=== PATIENT | female | born 1975 | race Caucasian/White ===

== ENCOUNTER 2017-03-21 11:49 | Emergency (ER) | payer SELFPAY ==
[~2017-03-21] VITALS: Ht 167.6 cm; Wt 90.9 kg
[~2017-03-21 11:49] MED LIST: AMOXICILLIN 8751 TAB PO; ATIVAN 1MG T1 MG/TAB PO; CEPHALEXIN500 M1 PO; CIPRO 500MG TA500 MG PO; DEPO-PROVER150 MG/M1 IM; LORTAB 7.5/5001 TAB PO; NO HOME MEDICATIONS; NORCO 325 MG-51 TAB PO; NORCO 325 MG-7.1 TAB PO; PEN-VEE K500 MG PO; PHENERGAN 25 TA25 MG PO; PHENERGAN W/CO120 M1 PO; PREVPAC PO; SEPTRA DS 8001 TAB PO; TYLENOL W/COD1 UDTAB PO; ULTRAM 50MG TAB50 MG PO; ZOFRAN 4MG T4 MG/TAB PO; ZOFRAN ODT4 MG PO
[2017-03-21 12:09] VITALS: TEMP 98
[2017-03-21 12:53] LABS: BASO # 0.1 (0.0-0.2); BASO % 0.5 % (0.0-2.0); EOS # 0.2 (0.0-0.7); GRAN # 5.6 (1.4-6.5); GRAN % 58.2 % (42.2-75.2); HEMATOCRIT 41.2 % (37.0-47.0); LYMPH # 2.9 (1.2-3.4); LYMPH % 30.1 % (20.0-51.0); MEAN CELL VOLUME 95 fl (80.0-100.0); MEAN CORPUSCULAR HEMOGLOBIN 32 pg (27.0-31.0); MEAN CORPUSCULAR HGB CONC 34 g/dl (33.0-37.0); MONO # 0.9 (0.1-0.6); PLATELET COUNT 219 K/mm3 (130-400); RED BLOOD COUNT 4.32 M/mm3 (4.10-5.30); WHITE BLOOD COUNT 9.6 K/mm3 (4.8-10.8)
[2017-03-21 12:57] LABS: ALBUMIN 4.8 gm/dL (3.5-5.0); BILIRUBIN,TOTAL 0.9 mg/dL (0.0-1.0); CALCIUM 9.6 mg/dL (8.4-10.2); CREATININE, serum 0.84 mg/dL (0.52-1.25); TOTAL PROTEIN 8.3 gm/dL (6.4-8.2)
[2017-03-21 13:46] LABS: COLLECTION METHOD CLEAN CATCH
[2017-03-21 13:55] LABS: MUCOUS Present /lpf; PH 5 (5-8); SQUAMOUS EPITHELIAL None Seen /hpf; URINE APPEARANCE Clear; URINE BACTERIA None Seen /hpf; URINE BILIRUBIN Negative (NEGATIVE); URINE BLOOD 2+ (NEGATIVE); URINE COLOR Yellow; URINE GLUCOSE Negative (NEGATIVE); URINE KETONE Negative (NEGATIVE); URINE LEUKOCYTE ESTERASE Negative (NEGATIVE); URINE PROTEIN(semi-quant) Negative (NEGATIVE); URINE RBC 0-2 /hpf; URINE UROBILINOGEN Negative (NEGATIVE); URINE WBC 0-2 /hpf
[2017-03-21 15:15] VITALS: BP 118/74; PULSE 82
== END 2017-03-21 15:25 | disposition home or self-care (01) ==
LOC: COL.ER 11:49
PROVIDERS: Emergency Medicine
DX: R10.12 Left upper quadrant pain (principal); Z90.710 Acquired absence of both cervix and uterus; Z98.51 Tubal ligation status; Z87.19 Personal history of other diseases of the digestive system
CPT/HCPCS: J2270; J2405

== ENCOUNTER 2017-06-25 18:33 | Emergency (ER) | payer SELFPAY ==
[~2017-06-25] VITALS: Ht 167.6 cm; Wt 100.0 kg
[2017-06-25 18:35] VITALS: BP 135/83; PULSE 83; TEMP 99
[2017-06-25] MEDS ORDERED: VOLTAREN 75 DR75 MG PO (19:40)
[2017-06-25] MEDS ORDERED: FLEXERIL 1010 MG/TAB PO (19:40)
== END 2017-06-25 20:02 | disposition home or self-care (01) ==
LOC: COL.ER 18:33
DX: S16.1XXA Strain of muscle, fascia and tendon at neck level, initial encounter (principal); F17.210 Nicotine dependence, cigarettes, uncomplicated; R40.2412 Glasgow coma scale score 13-15, at arrival to emergency department; V49.40XA Driver injured in collision with unspecified motor vehicles in traffic accident, initial encounter

== ENCOUNTER 2017-07-09 17:04 | Emergency (ER) | payer OTHER ==
[~2017-07-09] VITALS: Ht 165.1 cm; Wt 104.5 kg
[~2017-07-09 17:04] MED LIST changes: +FLEXERIL 1010 MG/TAB PO; +VOLTAREN 75 DR75 MG PO
[2017-07-09 17:07] VITALS: BP 143/87; PULSE 71; TEMP 97.6
[2017-07-09] MEDS ORDERED: CEPHALEXIN500 M1 PO (18:01)
[2017-07-09] MEDS ORDERED: NORCO 325 MG-51 TAB PO (18:42)
== END 2017-07-09 19:01 | disposition home or self-care (01) ==
LOC: COL.ER 17:04
DX: S61.310A Laceration without foreign body of right index finger with damage to nail, initial encounter (principal); W23.0XXA Caught, crushed, jammed, or pinched between moving objects, initial encounter

== ENCOUNTER 2018-06-27 18:43 | Emergency (ER) | payer OTHER ==
[~2018-06-27] VITALS: Ht 165.1 cm; Wt 100.0 kg
[2018-06-27 18:51] VITALS: TEMP 98.7
[2018-06-27 19:03] LABS: COLLECTION METHOD CLEAN CATCH
[2018-06-27 19:16] LABS: MUCOUS Present /lpf; PH 5 (5-8); SQUAMOUS EPITHELIAL 0-2 /hpf; URINE APPEARANCE Clear; URINE BACTERIA None Seen /hpf; URINE BILIRUBIN Negative (NEGATIVE); URINE BLOOD 1+ (NEGATIVE); URINE COLOR Yellow; URINE GLUCOSE Negative (NEGATIVE); URINE KETONE Negative (NEGATIVE); URINE LEUKOCYTE ESTERASE Negative (NEGATIVE); URINE NITRATE Negative (NEGATIVE); URINE PROTEIN(semi-quant) Negative (NEGATIVE); URINE UROBILINOGEN >=4.0 mg/dL (NEGATIVE)
[2018-06-27 19:38] LABS: BASO % 0.4 % (0.0-2.0); EOS # 0.1 (0.0-0.7); EOS % 0.9 % (0-4.0); GRAN # 6.4 (1.4-6.5); GRAN % 64.4 % (42.2-75.2); HEMATOCRIT 40.2 % (37.0-47.0); HEMOGLOBIN 13.4 g/dl (12.5-16.0); LYMPH # 2.6 (1.2-3.4); LYMPH % 25.7 % (20.0-51.0); MEAN CELL VOLUME 94 fl (80.0-100.0); MEAN CORPUSCULAR HEMOGLOBIN 31 pg (27.0-31.0); MEAN CORPUSCULAR HGB CONC 33 g/dl (33.0-37.0); MEAN PLATELET VOLUME 11.3 fl (7.4-10.4); MONO # 0.8 (0.1-0.6); MONO % 8.2 % (1.7-9.3); PLATELET COUNT 206 K/mm3 (130-400); REDCELL DISTRIBUTION WIDTH-CV 13.3 % (11.5-14.5)
[2018-06-27 19:53] LABS: ALBUMIN 4.2 gm/dL (3.5-5.0); BILIRUBIN,TOTAL 0.9 mg/dL (0.0-1.0); C-REACTIVE PROTEIN 2.1 mg/dL (0.0-0.9); CALCIUM 9.4 mg/dL (8.4-10.2); CREATININE, serum 0.83 mg/dL (0.52-1.25); POTASSIUM 3.4 mmol/L (3.4-5.0); TOTAL PROTEIN 7.6 gm/dL (6.4-8.2)
[2018-06-27] MEDS ORDERED: FLAGYL500 MG PO (21:27)
[2018-06-27 21:58] VITALS: BP 121/87; PULSE 64
== END 2018-06-27 22:00 | disposition home or self-care (01) ==
LOC: COL.ER 18:43
PROVIDERS: Physician Assistant
DX: N76.0 Acute vaginitis (principal); B96.89 Other specified bacterial agents as the cause of diseases classified elsewhere; F32.9 Major depressive disorder, single episode, unspecified; Z90.710 Acquired absence of both cervix and uterus; F17.210 Nicotine dependence, cigarettes, uncomplicated; F12.90 Cannabis use, unspecified, uncomplicated; Z98.51 Tubal ligation status
CPT/HCPCS: J1885; J2270; J7030; Q9967

== ENCOUNTER 2018-10-21 23:45 | Emergency (ER) | payer SELFPAY ==
[~2018-10-21] VITALS: Ht 165.1 cm; Wt 97.7 kg
[~2018-10-21 23:45] MED LIST changes: +FLAGYL500 MG PO
[2018-10-21 23:47] VITALS: TEMP 98.7
[2018-10-22 00:15] LABS: PH 6 (5-8); SQUAMOUS EPITHELIAL 0-2 /hpf; URINE APPEARANCE Clear; URINE BACTERIA None Seen /hpf; URINE BILIRUBIN Negative (NEGATIVE); URINE BLOOD 1+ (NEGATIVE); URINE COLOR Colorless; URINE GLUCOSE Negative (NEGATIVE); URINE KETONE Negative (NEGATIVE); URINE LEUKOCYTE ESTERASE Negative (NEGATIVE); URINE NITRATE Negative (NEGATIVE); URINE PROTEIN(semi-quant) Negative (NEGATIVE); URINE RBC 0-2 /hpf; URINE UROBILINOGEN Negative (NEGATIVE); URINE WBC None Seen /hpf
[2018-10-22 00:20] LABS: BASO % 0.4 % (0.0-2.0); EOS # 0.2 (0.0-0.7); EOS % 1.7 % (0-4.0); GRAN % 55.5 % (42.2-75.2); HEMATOCRIT 40.1 % (37.0-47.0); HEMOGLOBIN 13.3 g/dl (12.5-16.0); MEAN CELL VOLUME 93 fl (80.0-100.0); MEAN CORPUSCULAR HEMOGLOBIN 31 pg (27.0-31.0); MEAN CORPUSCULAR HGB CONC 33 g/dl (33.0-37.0); MEAN PLATELET VOLUME 11.7 fl (7.4-10.4); MONO # 0.8 (0.1-0.6); PLATELET COUNT 203 K/mm3 (130-400); RED BLOOD COUNT 4.31 M/mm3 (4.10-5.30); REDCELL DISTRIBUTION WIDTH-CV 13.5 % (11.5-14.5)
[2018-10-22 00:23] LABS: INR 0.9 (0.8-3.0); PROTHROMBIN TIME 10.3 SECONDS (9.7-12.8)
[2018-10-22 00:34] LABS: COLLECTION METHOD CLEAN CATCH
[2018-10-22 00:37] LABS: ALBUMIN 4.3 gm/dL (3.5-5.0); BILIRUBIN,TOTAL 0.4 mg/dL (0.0-1.0); CALCIUM 9.6 mg/dL (8.4-10.2); CREATININE, serum 0.84 (0.52-1.25); POTASSIUM 3.3 mmol/L (3.4-5.0); TOTAL PROTEIN 7.6 gm/dL (6.4-8.2)
[2018-10-22] MEDS ORDERED: FLEXERIL 1010 MG/TAB PO (02:19)
[2018-10-22 02:37] VITALS: BP 111/78; PULSE 74
== END 2018-10-22 02:37 | disposition home or self-care (01) ==
LOC: COL.ER 23:45
PROVIDERS: Emergency Medicine
DX: S23.3XXA Sprain of ligaments of thoracic spine, initial encounter (principal); S33.9XXA Sprain of unspecified parts of lumbar spine and pelvis, initial encounter; W17.89XA Other fall from one level to another, initial encounter
CPT/HCPCS: J2405; J3010; J7030; Q9967

== ENCOUNTER 2019-03-02 11:46 | Emergency (ER) | payer SELFPAY ==
[~2019-03-02] VITALS: Ht 165.1 cm; Wt 95.5 kg
[2019-03-02 12:04] VITALS: BP 117/60; TEMP 97.6
[2019-03-02 12:46] LABS: BASO % 0.5 % (0.0-2.0); EOS # 0.1 (0.0-0.7); EOS % 1.2 % (0-4.0); GRAN # 6.3 (1.4-6.5); GRAN % 74.2 % (42.2-75.2); HEMATOCRIT 41.9 % (37.0-47.0); HEMOGLOBIN 13.5 g/dl (12.5-16.0); LYMPH # 1.6 (1.2-3.4); LYMPH % 18.4 % (20.0-51.0); MEAN CELL VOLUME 97 fl (80.0-100.0); MEAN CORPUSCULAR HEMOGLOBIN 31 pg (27.0-31.0); MEAN CORPUSCULAR HGB CONC 32 g/dl (33.0-37.0); MEAN PLATELET VOLUME 11.5 fl (7.4-10.4); MONO # 0.4 (0.1-0.6); MONO % 5.2 % (1.7-9.3); PLATELET COUNT 174 K/mm3 (130-400); RED BLOOD COUNT 4.32 M/mm3 (4.10-5.30); REDCELL DISTRIBUTION WIDTH-CV 13.2 % (11.5-14.5)
[2019-03-02 12:56] LABS: ALBUMIN 4.1 gm/dL (3.5-5.0); BILIRUBIN,TOTAL 0.2 mg/dL (0.0-1.0); C-REACTIVE PROTEIN 0.9 mg/dL (0.0-0.9); CALCIUM 9.5 mg/dL (8.4-10.2); CREATININE, serum 0.8 (0.52-1.25); POTASSIUM 3.4 mmol/L (3.4-5.0)
[2019-03-02 13:28] VITALS: PULSE 70
== END 2019-03-02 13:37 | disposition home or self-care (01) ==
LOC: COL.ER 11:46
PROVIDERS: Physician Assistant
DX: R10.13 Epigastric pain (principal); F32.9 Major depressive disorder, single episode, unspecified; F17.210 Nicotine dependence, cigarettes, uncomplicated; Z98.51 Tubal ligation status; Z90.710 Acquired absence of both cervix and uterus; Z87.19 Personal history of other diseases of the digestive system

== ENCOUNTER 2019-08-01 09:01 | Emergency (ER) | payer OTHER ==
[~2019-08-01] VITALS: Ht 165.1 cm; Wt 95.5 kg
[2019-08-01 10:12] VITALS: BP 130/80; PULSE 88; TEMP 99
== END 2019-08-01 10:13 | disposition home or self-care (01) ==
LOC: COL.ER 09:01
DX: J11.1 Influenza due to unidentified influenza virus with other respiratory manifestations (principal)

== ENCOUNTER 2019-12-09 14:44 | Emergency (ER) | payer OTHER ==
[~2019-12-09] VITALS: Ht 165.1 cm; Wt 100.0 kg
[2019-12-09 14:58] VITALS: TEMP 98.3
[2019-12-09 15:11] LABS: BASO % 0.4 % (0.0-2.0); EOS # 0.1 (0.0-0.7); EOS % 0.9 % (0-4.0); GRAN # 5.8 (1.4-6.5); GRAN % 59.5 % (42.2-75.2); HEMOGLOBIN 13.6 g/dl (12.5-16.0); LYMPH % 30.8 % (20.0-51.0); MEAN CELL VOLUME 95 fl (80.0-100.0); MEAN CORPUSCULAR HEMOGLOBIN 32 pg (27.0-31.0); MEAN CORPUSCULAR HGB CONC 33 g/dl (33.0-37.0); MEAN PLATELET VOLUME 11.8 fl (7.4-10.4); MONO # 0.8 (0.1-0.6); MONO % 8.1 % (1.7-9.3); PLATELET COUNT 190 K/mm3 (130-400); REDCELL DISTRIBUTION WIDTH-CV 13.2 % (11.5-14.5)
[2019-12-09 15:30] LABS: ALBUMIN 4.3 gm/dL (3.5-5.0); BILIRUBIN,TOTAL 0.7 mg/dL (0.0-1.0); C-REACTIVE PROTEIN 1.2 mg/dL (0.0-0.9); CALCIUM 9.5 mg/dL (8.4-10.2); CREATININE, serum 0.87 (0.52-1.25); POTASSIUM 3.6 mmol/L (3.4-5.0); TOTAL PROTEIN 7.6 gm/dL (6.4-8.2)
[2019-12-09 15:43] LABS: PROLACTIN 9.5 ng/mL (3.0-18.6)
[2019-12-09 17:03] VITALS: BP 132/92; PULSE 67
== END 2019-12-09 17:07 | disposition home or self-care (01) ==
LOC: COL.ER 14:44
PROVIDERS: Emergency Medicine
DX: F44.5 Conversion disorder with seizures or convulsions (principal); Z32.02 Encounter for pregnancy test, result negative
CPT/HCPCS: J2060; J7030

== ENCOUNTER 2020-07-14 07:21 | Emergency (ER) | payer OTHER ==
[~2020-07-14] VITALS: Ht 165.1 cm; Wt 100.0 kg
[2020-07-14 07:27] VITALS: TEMP 96.6
[2020-07-14 08:15] LABS: BASO % 0.5 % (0.0-2.0); EOS # 0.1 (0.0-0.7); EOS % 1.7 % (0-4.0); GRAN # 5.6 (1.4-6.5); GRAN % 65.9 % (42.2-75.2); HEMATOCRIT 41.1 % (37.0-47.0); HEMOGLOBIN 13.7 g/dl (12.5-16.0); LYMPH # 1.9 (1.2-3.4); LYMPH % 22.8 % (20.0-51.0); MEAN CELL VOLUME 94 fl (80.0-100.0); MEAN CORPUSCULAR HEMOGLOBIN 31 pg (27.0-31.0); MEAN CORPUSCULAR HGB CONC 33 g/dl (33.0-37.0); MEAN PLATELET VOLUME 11.3 fl (7.4-10.4); MONO # 0.7 (0.1-0.6); MONO % 8.7 % (1.7-9.3); PLATELET COUNT 215 K/mm3 (130-400); RED BLOOD COUNT 4.39 M/mm3 (4.10-5.30)
[2020-07-14 08:30] LABS: ALANINE AMINOTRANSFERASE 36 U/L (4-34); ALBUMIN 4.4 gm/dL (3.5-5.0); ALKALINE PHOSPHATASE 65 U/L (50-136); ANION GAP 8 mmol/L (7-16); AST,SGOT 30 U/L (15-37); BILIRUBIN,TOTAL 0.5 mg/dL (0.0-1.0); BLOOD UREA NITROGEN 16 mg/dL (7-17); CALCIUM 9.4 mg/dL (8.4-10.2); CARBON DIOXIDE 21 mmol/L (22-30); CHLORIDE 110 mmol/L (98-107); CREATININE, serum 1.05 (0.52-1.25); GLUCOSE 113 mg/dL (74-106); LIPASE 156 U/L (23-300); POTASSIUM 4.3 mmol/L (3.4-5.0); SODIUM 139 mmol/L (137-145); TOTAL PROTEIN 7.6 gm/dL (6.4-8.2)
[2020-07-14 08:46] LABS: TROPONIN-I < 0.012 ng/mL (0.000-0.035)
[2020-07-14] MEDS ORDERED: TYLENOL 325MG325 MG PO (10:01)
[2020-07-14] MEDS ORDERED: ROXICODONE 55 MG/TAB PO (10:01)
[2020-07-14] MEDS ORDERED: MOTRIN 400400 MG/TAB PO (10:01)
[2020-07-14] MEDS ORDERED: ZOFRAN ODT4 MG PO (10:01)
[2020-07-14 10:11] VITALS: BP 121/85; PULSE 65
== END 2020-07-14 10:16 | disposition home or self-care (01) ==
LOC: COL.ER 07:21
PROVIDERS: Emergency Medicine
DX: K80.50 Calculus of bile duct without cholangitis or cholecystitis without obstruction (principal)
CPT/HCPCS: J2270; J2405; J7030

== ENCOUNTER 2020-07-28 02:44 | Emergency (ER) | payer OTHER ==
[~2020-07-28] VITALS: Ht 165.1 cm; Wt 101.4 kg
[~2020-07-28 02:44] MED LIST changes: +MOTRIN 400400 MG/TAB PO; +ROXICODONE 55 MG/TAB PO; +TYLENOL 325MG325 MG PO
[2020-07-28 02:45] VITALS: TEMP 97.6
[2020-07-28 03:01] LABS: BASO # 0.1 (0.0-0.2); BASO % 0.6 % (0.0-2.0); EOS # 0.1 (0.0-0.7); EOS % 0.9 % (0-4.0); GRAN # 4.6 (1.4-6.5); GRAN % 52.2 % (42.2-75.2); HEMATOCRIT 42.8 % (37.0-47.0); HEMOGLOBIN 14.1 g/dl (12.5-16.0); LYMPH # 3.2 (1.2-3.4); LYMPH % 36.5 % (20.0-51.0); MEAN CELL VOLUME 96 fl (80.0-100.0); MEAN CORPUSCULAR HEMOGLOBIN 32 pg (27.0-31.0); MEAN CORPUSCULAR HGB CONC 33 g/dl (33.0-37.0); MEAN PLATELET VOLUME 11.6 fl (7.4-10.4); MONO # 0.8 (0.1-0.6); MONO % 9.2 % (1.7-9.3); PLATELET COUNT 221 K/mm3 (130-400); RED BLOOD COUNT 4.47 M/mm3 (4.10-5.30); REDCELL DISTRIBUTION WIDTH-CV 13.3 % (11.5-14.5)
[2020-07-28 03:08] LABS: ALANINE AMINOTRANSFERASE 51 U/L (4-34); ALBUMIN 4.7 gm/dL (3.5-5.0); ALCOHOL(ethanol),MEDICAL 130 mg/dL; ALKALINE PHOSPHATASE 70 U/L (50-136); ANION GAP 12 mmol/L (7-16); AST,SGOT 36 U/L (15-37); BILIRUBIN,TOTAL 0.5 mg/dL (0.0-1.0); BLOOD UREA NITROGEN 9 mg/dL (7-17); CALCIUM 9.5 mg/dL (8.4-10.2); CARBON DIOXIDE 19 mmol/L (22-30); CHLORIDE 110 mmol/L (98-107); CREATININE, serum 0.82 (0.52-1.25); GLUCOSE 101 mg/dL (74-106); LIPASE 74 U/L (23-300); POTASSIUM 3.8 mmol/L (3.4-5.0); SODIUM 142 mmol/L (137-145)
[2020-07-28 03:09] LABS: ACETAMINOPHEN < 10 ug/mL (10-30); SALICYLATE < 1.0 mg/dL
[2020-07-28 07:23] LABS: COLLECTION METHOD RANDOM VOIDED
[2020-07-28 07:41] LABS: MUCOUS Present /lpf; PH 5 (5-8); SQUAMOUS EPITHELIAL 0-2 /hpf; URINE APPEARANCE Clear; URINE BACTERIA None Seen /hpf; URINE BILIRUBIN Negative (NEGATIVE); URINE BLOOD 2+ (NEGATIVE); URINE COLOR Yellow; URINE GLUCOSE Negative (NEGATIVE); URINE KETONE 1+ (NEGATIVE); URINE LEUKOCYTE ESTERASE Negative (NEGATIVE); URINE NITRATE Negative (NEGATIVE); URINE PROTEIN(semi-quant) Negative (NEGATIVE); URINE RBC 0-2 /hpf; URINE UROBILINOGEN Negative (NEGATIVE); URINE WBC 0-2 /hpf
[2020-07-28 07:51] LABS: TRICYCLIC ANTIDEPRESS URINE NEGATIVE
[2020-07-28 20:41] VITALS: BP 132/77; PULSE 66
== END 2020-07-28 20:41 | disposition home or self-care (01) ==
LOC: COL.ER 02:44
PROVIDERS: Emergency Medicine
DX: T43.212A Poisoning by selective serotonin and norepinephrine reuptake inhibitors, intentional self-harm, initial encounter (principal); F10.10 Alcohol abuse, uncomplicated
CPT/HCPCS: J2405; J7030

== ENCOUNTER 2020-09-29 15:53 | Emergency (ER) | payer OTHER ==
[~2020-09-29] VITALS: Ht 165.1 cm; Wt 101.8 kg
[2020-09-29] MEDS ORDERED: ZOLOFT 50MG50 MG (16:49)
[2020-09-29 16:52] VITALS: TEMP 98.2
[2020-09-29 17:44] LABS: BASO % 0.5 % (0.0-2.0); EOS # 0.2 (0.0-0.7); GRAN # 4.6 (1.4-6.5); GRAN % 60.9 % (42.2-75.2); HEMOGLOBIN 12.9 g/dl (12.5-16.0); LYMPH # 2.1 (1.2-3.4); LYMPH % 27.1 % (20.0-51.0); MEAN CELL VOLUME 96 fl (80.0-100.0); MEAN CORPUSCULAR HEMOGLOBIN 32 pg (27.0-31.0); MEAN CORPUSCULAR HGB CONC 33 g/dl (33.0-37.0); MEAN PLATELET VOLUME 11.9 fl (7.4-10.4); MONO # 0.7 (0.1-0.6); MONO % 9.1 % (1.7-9.3); PLATELET COUNT 194 K/mm3 (130-400); RED BLOOD COUNT 4.07 M/mm3 (4.10-5.30)
[2020-09-29 18:01] LABS: ALBUMIN 4.1 gm/dL (3.5-5.0); BILIRUBIN,TOTAL 0.4 mg/dL (0.0-1.0); C-REACTIVE PROTEIN 1.1 mg/dL (0.0-0.9); CALCIUM 9.2 mg/dL (8.4-10.2); CREATININE, serum 0.7 (0.52-1.25); POTASSIUM 4.2 mmol/L (3.4-5.0); TOTAL PROTEIN 7.3 gm/dL (6.4-8.2)
[2020-09-29 18:06] LABS: COLLECTION METHOD CLEAN CATCH
[2020-09-29 18:14] LABS: MUCOUS Present /lpf; PH 6 (5-8); URINE APPEARANCE Hazy; URINE BACTERIA Rare /hpf; URINE BILIRUBIN Negative (NEGATIVE); URINE BLOOD 1+ (NEGATIVE); URINE COLOR Yellow; URINE GLUCOSE Negative (NEGATIVE); URINE KETONE Negative (NEGATIVE); URINE LEUKOCYTE ESTERASE Negative (NEGATIVE); URINE NITRATE Negative (NEGATIVE); URINE PROTEIN(semi-quant) Negative (NEGATIVE); URINE UROBILINOGEN Negative (NEGATIVE)
[2020-09-29 18:45] VITALS: BP 127/79; PULSE 69
== END 2020-09-29 18:50 | disposition home or self-care (01) ==
LOC: COL.ER 15:53
PROVIDERS: Nurse Practitioner
DX: R10.11 Right upper quadrant pain (principal); F41.9 Anxiety disorder, unspecified; F32.9 Major depressive disorder, single episode, unspecified; F17.210 Nicotine dependence, cigarettes, uncomplicated

== ENCOUNTER 2021-01-11 13:10 | Emergency (ER) | payer OTHER ==
[~2021-01-11] VITALS: Ht 165.1 cm; Wt 100.0 kg
[~2021-01-11 13:10] MED LIST changes: +ZOLOFT 50MG50 MG
[2021-01-11 13:18] VITALS: TEMP 98.6
[2021-01-11 13:49] LABS: BASO % 0.4 % (0.0-2.0); EOS # 0.2 (0.0-0.7); EOS % 1.8 % (0-4.0); GRAN # 6.2 (1.4-6.5); GRAN % 63.9 % (42.2-75.2); HEMATOCRIT 42.1 % (37.0-47.0); LYMPH # 2.5 (1.2-3.4); LYMPH % 25.3 % (20.0-51.0); MEAN CELL VOLUME 97 fl (80.0-100.0); MEAN CORPUSCULAR HEMOGLOBIN 32 pg (27.0-31.0); MEAN CORPUSCULAR HGB CONC 33 g/dl (33.0-37.0); MEAN PLATELET VOLUME 11.7 fl (7.4-10.4); MONO # 0.8 (0.1-0.6); MONO % 8.3 % (1.7-9.3); PLATELET COUNT 205 K/mm3 (130-400); RED BLOOD COUNT 4.36 M/mm3 (4.10-5.30); REDCELL DISTRIBUTION WIDTH-CV 13.3 % (11.5-14.5)
[2021-01-11 13:54] LABS: BILIRUBIN,TOTAL 0.5 mg/dL (0.0-1.0); CREATININE, serum 0.77 (0.52-1.25); MAGNESIUM 1.9 mg/dL (1.6-2.3); PHOSPHOROUS 3.2 mg/dL (2.5-4.5); POTASSIUM 3.9 mmol/L (3.4-5.0); TOTAL PROTEIN 7.1 gm/dL (6.4-8.2)
[2021-01-11 14:45] VITALS: BP 139/89; PULSE 53
== END 2021-01-11 14:45 | disposition home or self-care (01) ==
LOC: COL.ER 13:10
PROVIDERS: Student in an Organized Health Care Education/Training Program
DX: R56.9 Unspecified convulsions (principal); F17.210 Nicotine dependence, cigarettes, uncomplicated
CPT/HCPCS: J1885; J7030

== ENCOUNTER 2021-03-28 00:09 | Emergency (ER) | payer SELFPAY ==
[~2021-03-28] VITALS: Ht 167.6 cm; Wt 100.0 kg
[2021-03-28 00:16] VITALS: TEMP 98.6
[2021-03-28] MEDS ORDERED: CRUTCHES MC (00:58)
[2021-03-28 01:11] VITALS: BP 109/79; PULSE 68
== END 2021-03-28 01:11 | disposition home or self-care (01) ==
LOC: COL.ER 00:09
DX: S93.402A Sprain of unspecified ligament of left ankle, initial encounter (principal); F41.9 Anxiety disorder, unspecified; F32.A Depression, unspecified; F17.210 Nicotine dependence, cigarettes, uncomplicated; Z79.899 Other long term (current) drug therapy; W10.9XXA Fall (on) (from) unspecified stairs and steps, initial encounter

== ENCOUNTER → 2021-05-04 | Emergency (ER) | payer OTHER ==
[~2021-05-04] MED LIST changes: +AMOXICILLIN 50500 MG PO; +CRUTCHES MC; +PERCOCET 325 MG1 TA2 PO
== END ==
LOC: COL.ER 08:30
DX: K04.7 Periapical abscess without sinus (principal); F41.9 Anxiety disorder, unspecified; F32.A Depression, unspecified; Z79.899 Other long term (current) drug therapy
CPT/HCPCS: J0696

== ENCOUNTER → 2021-08-19 | Outpatient (CLI) | payer SELFPAY | LOC: MC.RAD 09:00 | DX: N63.20 Unspecified lump in the left breast, unspecified quadrant (principal) ==

== ENCOUNTER 2021-12-16 11:58 | Emergency (ER) | payer SELFPAY ==
[~2021-12-16] VITALS: Ht 165.1 cm; Wt 100.0 kg
[2021-12-16 12:02] VITALS: TEMP 98.3
[2021-12-16 14:02] VITALS: BP 114/84; PULSE 63
== END 2021-12-16 14:03 | disposition home or self-care (01) ==
LOC: COL.ER 11:58
DX: S09.90XA Unspecified injury of head, initial encounter (principal); R56.9 Unspecified convulsions; F17.210 Nicotine dependence, cigarettes, uncomplicated; Z28.310 Unvaccinated for COVID-19; W01.198A Fall on same level from slipping, tripping and stumbling with subsequent striking against other object, initial encounter
CPT/HCPCS: J2765

== ENCOUNTER → 2022-02-21 | Outpatient (CLI) | payer OTHER | LOC: ZCOL.LAB 15:57 | DX: Z01.89 Encounter for other specified special examinations (principal) ==

== ENCOUNTER 2023-06-29 15:14 | Emergency (ER) | payer OTHER ==
[~2023-06-29] VITALS: Ht 165.1 cm; Wt 95.5 kg
[2023-06-29] MEDS ORDERED: dexAMETHasone 10 MG/ML VIAL IM ONE (16:15)
[2023-06-29] MEDS ORDERED: AMOXICILLIN 50500 MG PO (16:33)
[2023-06-29 16:45] VITALS: BP 137/99; PULSE 58
== END 2023-06-29 16:45 | disposition home or self-care (01) ==
LOC: COL.ER 15:14
DX: J01.80 Other acute sinusitis (principal); F17.210 Nicotine dependence, cigarettes, uncomplicated
CPT/HCPCS: J1100

== ENCOUNTER 2024-01-18 01:02 | Emergency (ER) | payer SELFPAY ==
[~2024-01-18] VITALS: Ht 165.1 cm; Wt 98.6 kg
[2024-01-18] MEDS ORDERED: Ibuprofen 400 MG TAB PO ONE (03:30)
[2024-01-18 05:23] VITALS: BP 127/77; PULSE 88; TEMP 98
== END 2024-01-18 05:31 | disposition home or self-care (01) ==
LOC: COL.ER 01:02
DX: S60.811A Abrasion of right wrist, initial encounter (principal); R51.9 Headache, unspecified; Y04.8XXA Assault by other bodily force, initial encounter